=== PATIENT | male | born 1940 | race Hispanic/Latino ===

== ENCOUNTER 2017-12-04 17:51 | Inpatient (IN) | payer MEDICAID, OTHER ==
[~2017-12-04] VITALS: Ht 165.1 cm; Wt 64.7 kg
[2017-12-04 18:32] LABS: BASOPHILS % (AUTO) 0.6 % (0.0-5.0); EOSINOPHILS % (AUTO) 0.8 % (0.0-8.0); HEMATOCRIT 29.4 % (42-54); MEAN CORPUSCULAR HEMOGLOBIN 21.5 pg (27.0-33.0); MEAN CORPUSCULAR VOLUME 69.4 fL (79-99); MONOCYTES % (AUTO) 4.5 % (3.0-13.0); NEUTROPHILS % (AUTO) 88.1 % (40.0-77.0); PLATELET COUNT (AUTO) 202 K/uL (130-400); RED BLOOD CELL COUNT(AUTO) 4.24 MIL/uL (4.50-6.20); RED CELL DISTRIBUTION WIDTH 19.4 % (11.0-15.5); WHITE BLOOD COUNT (AUTO) 9.1 K/uL (4.8-10.8)
[2017-12-04 18:47] LABS: INR 1.27 (0.85-1.15); PARTIAL THROMBOPLASTIN TIME 31.9 SEC (26.3-35.5); PROTHROMBIN TIME 13.3 SEC (9.6-11.6)
[2017-12-04 18:53] LABS: BILIRUBIN,TOTAL 1.1 mg/dL (0.2-1.0); TOTAL PROTEIN, SERUM 7.4 g/dL (6.0-8.3)
[2017-12-04 18:57] LABS: B-TYPE NATRIURETIC PEPTIDE 566 pg/mL (0-100)
[2017-12-04] MEDS ORDERED: INSULIN HUMULIN R 100 UNIT/ML 3ML ONE ×2 (19:02→23:30)
[2017-12-04 19:24] LABS: POTASSIUM 6.1 mmol/L (3.5-5.1)
[2017-12-04 19:38] LABS: RAPID GROUP A STREP NEGATIVE (NEGATIVE)
[2017-12-04] MEDS ORDERED: ONDANSETRON HCL 4 MG/2 ML VIAL ONE (19:43)
[2017-12-04] MEDS ORDERED: MORPHINE SULFATE 4 MG/1ML SYG ONE (19:45)
[2017-12-04 20:05] LABS: APPEARANCE,URINE Clear (CLEAR); BILIRUBIN,URINE Negative (NEGATIVE); COLOR,URINE Yellow (YELLOW); GLUCOSE, URINE (UA) >=1000 mg/dL (NEGATIVE); KETONES,URINE Negative (NEGATIVE); LEUKOCYTE ESTERASE ,URINE Negative (NEGATIVE); NITRATE,URINE Negative (NEGATIVE); OCCULT BLOOD,URINE Negative (NEGATIVE); PROTEIN,URINE Negative (NEGATIVE); UROBILINOGEN,URINE 0.2 mg/dL (0.2-1.0)
[2017-12-04 20:16] LABS: ABG BASE EXCESS -6.7 mmol/L (-2.0-3.0); ABG HCO3 17.2 mmol/L (21.0-28.0); ABG OXYGEN SATURATION 96.1 % (95.0-99.0); ABG PCO2 31 mmHg (35-48)
[2017-12-04 20:21] LABS: BACTERIA,URINE Rare /HPF (None Seen); RBC,URINE 0-1 /HPF (0-1); SQUAMOUS EPITHELIAL CELL,UR Rare /LPF (0-2); WBC,URINE 0-1 /HPF (0-1)
[2017-12-04] MEDS ORDERED: SODIUM POLYSTYRENE SULFONATE 15 GM/60 ML ML ONE (21:53)
[2017-12-04] MEDS ORDERED: SODIUM CHLORIDE 0.9% 1000ML 1,000 ML IV SCH (22:11)
[2017-12-04] MEDS ORDERED: INSULIN REGULAR, HUMAN 3ML 100 UNIT in SODIUM CHLORIDE 0.9% 99 ML IV PRN ×2 (22:15)
[2017-12-04] MEDS ORDERED: DEXTROSE 50%-WATER 50 ML DISP.SYRIN IV PRN (22:15)
[2017-12-04] MEDS ORDERED: ACETAMINOPHEN 325 MG TAB PO PRN ×2 (22:15)
[2017-12-04] MEDS ORDERED: GLUCAGON 1MG KIT 1 MG ML IM PRN (22:15)
[2017-12-04] MEDS ORDERED: ONDANSETRON HCL 4 MG/2 ML VIAL IV PRN (22:15)
[2017-12-04] MEDS ORDERED: SODIUM CHLORIDE 0.9% 100 ML IV ONE (23:29)
[2017-12-05] MEDS ORDERED: HYDRALAZINE HCL 20 MG/ML VIAL IM PRN
[2017-12-05] MEDS ORDERED: LABETALOL 20 MG/4 ML DISP.SYRIN IV PRN
[2017-12-05 00:32] LABS: HEMATOCRIT 27.9 % (42-54); MEAN CORPUSCULAR VOLUME 67.7 fL (79-99); NUCLEATED RED BLOOD CELLS 0.1 % (0.0-0.19); PLATELET COUNT (AUTO) 213 K/uL (130-400); RED BLOOD CELL COUNT(AUTO) 4.12 MIL/uL (4.50-6.20); RED CELL DISTRIBUTION WIDTH 18.6 % (11.0-15.5); WHITE BLOOD COUNT (AUTO) 7.9 K/uL (4.8-10.8)
[2017-12-05 00:55] LABS: INR 1.25 (0.85-1.15); PARTIAL THROMBOPLASTIN TIME 32.7 SEC (26.3-35.5); PROTHROMBIN TIME 13.1 SEC (9.6-11.6)
[2017-12-05 01:01] LABS: CREATININE 1.8 mg/dL (0.5-1.5); POTASSIUM 5.3 mmol/L (3.5-5.1); THYROID STIMULATING HORMONE 2.64 uIU/mL (0.36-3.74)
[2017-12-05 01:05] LABS: HEMOGLOBIN A1C 14.1 % (4.0-6.0)
[2017-12-05] MEDS ORDERED: METRONIDAZOLE 500MG/100ML BAG 100 ML ONE (05:20)
[2017-12-05] MEDS ORDERED: HEPARIN SODIUM 5000UNIT/ML 1ML VIAL ONE (05:20)
[2017-12-05] MEDS: METRONIDAZOLE 250MG/50ML 50 ML IV SCH ×3 (06:00→22:04)
[2017-12-05] MEDS ORDERED: CEFEPIME 1GM+NS 50ML 50 ML IV SCH (06:00)
[2017-12-05] MEDS ORDERED: CEFEPIME HCL 1 GM VIAL ONE ×2 (06:15→14:50)
[2017-12-05] MEDS ORDERED: PANTOPRAZOLE SODIUM 40 MG TABLET.DR PO ONE ×2 (08:31→08:41)
[2017-12-05] MEDS ORDERED: ACETAMINOPHEN 325 MG TAB ONE (08:49)
[2017-12-05] MEDS: PANTOPRAZOLE SODIUM 40 MG TABLET.DR PO SCH (09:00)
[2017-12-05] MEDS ORDERED: GUAIFENESIN-DM 200/20 MG 10 ML ONE (10:02)
[2017-12-05] MEDS: HEPARIN SODIUM 5000UNIT/ML 1ML VIAL SQ SCH ×3 (12:00→23:59)
[2017-12-05] MEDS ORDERED: INSULIN HUMULIN R 100 UNIT/ML 3ML SQ ONE (12:55)
[2017-12-05] MEDS: CEFEPIME HCL 1 GM VIAL IVP SCH ×2 (14:00→22:04)
[2017-12-05] MEDS ORDERED: RENAL DOSE IV PRN (14:45)
[2017-12-05] MEDS ORDERED: PHARMACY COMMUNICATION MISC SCH (15:00)
[2017-12-05 16:52] VITALS: BP 139/73
[2017-12-05] MEDS: LEVOFLOXACIN 500 MG/D5W 100 ML 100 ML IV SCH (18:24)
[2017-12-05] MEDS: GUAIFENESIN-DM 200/20 MG 10 ML PO PRN (18:24)
[2017-12-05] MEDS: IPRATROPIUM/ALBUTEROL SULFATE 3 ML SOLUTION IH PRN ×2 (19:05→23:38)
[2017-12-05 19:33] VITALS: BP 159/84
[2017-12-05] MEDS ORDERED: MORPHINE SULFATE 2 MG/ML 1ML SYG IVP PRN (20:30)
[2017-12-05] MEDS ORDERED: ACETAMINOPHEN-CODEINE 300/30MG TAB PO PRN (20:30)
[2017-12-05] MEDS ORDERED: SODIUM CHLORIDE 0.9% 1000ML 1,000 ML IV SCH (20:45)
[2017-12-05] MEDS ORDERED: INSULIN GLARGINE 100 UNITS/ML 10 ML VIAL SQ SCH (20:51)
[2017-12-05] MEDS ORDERED: MORPHINE SULFATE 8 MG/ML VIAL ONE (21:09)
[2017-12-05] MEDS: MIRTAZAPINE 15 MG TABLET PO SCH (21:12)
[2017-12-05] MEDS: INSULIN HUMULIN R 100 UNIT/ML 3ML SQ SCH (21:13)
[2017-12-05 23:29] VITALS: BP 114/58
[2017-12-05] MEDS ORDERED: PNEUMOCOCCAL VACCINE POLYVALENT 0.5 ML/VIAL [PPV] IM SCH (23:45)
[2017-12-06 04:00] VITALS: BP 131/75
[2017-12-06 04:44] LABS: BASOPHILS % (AUTO) 0.1 % (0.0-5.0); EOSINOPHILS % (AUTO) 0.7 % (0.0-8.0); HEMATOCRIT 24.2 % (42-54); LYMPHOCYTES % (AUTO) 6.4 % (21.0-51.0); MEAN CORPUSCULAR HEMOGLOBIN 21.7 pg (27.0-33.0); MEAN CORPUSCULAR HGB CONC 33.1 g/dL (32.0-36.0); MEAN CORPUSCULAR VOLUME 65.6 fL (79-99); MONOCYTES % (AUTO) 6.4 % (3.0-13.0); NEUTROPHILS % (AUTO) 86.4 % (40.0-77.0); PLATELET COUNT (AUTO) 236 K/uL (130-400); RED BLOOD CELL COUNT(AUTO) 3.69 MIL/uL (4.50-6.20); RED CELL DISTRIBUTION WIDTH 18.7 % (11.0-15.5); WHITE BLOOD COUNT (AUTO) 10.8 K/uL (4.8-10.8)
[2017-12-06 04:55] LABS: CREATININE 1.5 mg/dL (0.5-1.5); MAGNESIUM 1.7 mg/dL (1.80-2.40); POTASSIUM 4.7 mmol/L (3.5-5.1)
[2017-12-06] MEDS: CEFEPIME HCL 1 GM VIAL IVP SCH ×3 (05:56→23:28)
[2017-12-06] MEDS: METRONIDAZOLE 250MG/50ML 50 ML IV SCH ×3 (05:56→23:29)
[2017-12-06] MEDS: IPRATROPIUM/ALBUTEROL SULFATE 3 ML SOLUTION IH PRN ×4 (06:26→23:36)
[2017-12-06] MEDS: INSULIN GLARGINE 100 UNITS/ML 10 ML VIAL SQ SCH ×2 (06:35→23:31)
[2017-12-06] MEDS: INSULIN HUMULIN R 100 UNIT/ML 3ML SQ SCH ×4 (06:36→23:30)
[2017-12-06] MEDS: GUAIFENESIN-DM 200/20 MG 10 ML PO PRN (06:36)
[2017-12-06 08:00] VITALS: BP 122/70
[2017-12-06] MEDS ORDERED: VANCOMYCIN PROTOCOL PER PHARMACY IV SCH (09:45)
[2017-12-06 11:40] VITALS: BP 141/77
[2017-12-06] MEDS: HEPARIN SODIUM 5000UNIT/ML 1ML VIAL SQ SCH (12:00)
[2017-12-06] MEDS ORDERED: IOPAMIDOL-370 75 ML VIAL IV ONE (14:25)
[2017-12-06] MEDS: PANTOPRAZOLE SODIUM 40 MG TABLET.DR PO SCH (15:24)
[2017-12-06] MEDS: VANCOMYCIN 1GM+NS 250ML 250 ML IV SCH (15:25)
[2017-12-06 16:00] VITALS: BP 133/73
[2017-12-06] MEDS ORDERED: COMPOUND IV MISC 1 EACH IVSOLN MISC PRN (19:00)
[2017-12-06 19:51] VITALS: BP 160/72
[2017-12-06] MEDS: MIRTAZAPINE 15 MG TABLET PO SCH (23:28)
[2017-12-07] VITALS (7 sets, daily range): BP systolic 128–137; BP diastolic 61–75
[2017-12-07] MEDS ORDERED: MORPHINE SULFATE 4 MG/1ML SYG ONE (01:24)
[2017-12-07 06:09] LABS: % IRON SATURATION 12.2 % (30-44)
[2017-12-07] MEDS: IPRATROPIUM/ALBUTEROL SULFATE 3 ML SOLUTION IH PRN ×4 (06:32→19:12)
[2017-12-07] MEDS ORDERED: SODIUM CHLORIDE 3% FOR INHALATION 4 ML/AMP VIAL.NEB IH ONE ×2 (06:33→10:53)
[2017-12-07] MEDS: CEFEPIME HCL 1 GM VIAL IVP SCH ×3 (07:11→22:00)
[2017-12-07] MEDS: INSULIN GLARGINE 100 UNITS/ML 10 ML VIAL SQ SCH ×2 (07:12→22:06)
[2017-12-07] MEDS: INSULIN HUMULIN R 100 UNIT/ML 3ML SQ SCH ×4 (07:16→22:09)
[2017-12-07] MEDS: METRONIDAZOLE 250MG/50ML 50 ML IV SCH ×3 (10:02→23:37)
[2017-12-07] MEDS: PANTOPRAZOLE SODIUM 40 MG TABLET.DR PO SCH (10:02)
[2017-12-07] MEDS: VANCOMYCIN 1GM+NS 250ML 250 ML IV SCH (10:03)
[2017-12-07] MEDS ORDERED: EPOETIN ALFA 10,000 UNIT/ML VIAL SQ SCH (11:00)
[2017-12-07] MEDS: LEVOFLOXACIN 500 MG/D5W 100 ML 100 ML IV SCH (21:56)
[2017-12-07] MEDS: MIRTAZAPINE 15 MG TABLET PO SCH (21:59)
[2017-12-08] VITALS (13 sets, daily range): BP systolic 120–155; BP diastolic 59–86
[2017-12-08] MEDS: METRONIDAZOLE 250MG/50ML 50 ML IV SCH ×2 (05:56→14:23)
[2017-12-08] MEDS: CEFEPIME HCL 1 GM VIAL IVP SCH ×2 (05:56→14:22)
[2017-12-08 06:16] LABS: HEMATOCRIT 23.8 % (42-54); MEAN CORPUSCULAR HEMOGLOBIN 22.5 pg (27.0-33.0); MEAN CORPUSCULAR HGB CONC 33.9 g/dL (32.0-36.0); MEAN CORPUSCULAR VOLUME 66.3 fL (79-99); PLATELET COUNT (AUTO) 190 K/uL (130-400); RED BLOOD CELL COUNT(AUTO) 3.59 MIL/uL (4.50-6.20); RED CELL DISTRIBUTION WIDTH 18.8 % (11.0-15.5); WHITE BLOOD COUNT (AUTO) 9.3 K/uL (4.8-10.8)
[2017-12-08 06:23] LABS: CREATININE 1.1 mg/dL (0.5-1.5); POTASSIUM 4.3 mmol/L (3.5-5.1)
[2017-12-08] MEDS: INSULIN HUMULIN R 100 UNIT/ML 3ML SQ SCH ×4 (06:30→21:48)
[2017-12-08] MEDS: INSULIN GLARGINE 100 UNITS/ML 10 ML VIAL SQ SCH ×2 (06:32→21:47)
[2017-12-08 07:39] LABS: LYMPHOCYTES % (MANUAL) 5 % (22-44); MAN.DIFF COMMENT-IMPRESSION MANUAL DIFFERENTIAL; MONOCYTES % (MANUAL) 2 % (2-9); PLATELET MORPHOLOGY COMMENT ADEQUATE; SEGMENTED NEUTROPHILS % 93 % (40-70)
[2017-12-08] MEDS: PANTOPRAZOLE SODIUM 40 MG TABLET.DR PO SCH (11:02)
[2017-12-08] MEDS: VANCOMYCIN 1GM+NS 250ML 250 ML IV SCH (11:04)
[2017-12-08 12:53] LABS: GLUCOSE,BODY FLUID 215 mg/dL (1-40)
[2017-12-08 13:15] LABS: APPEARANCE BODY FLUID CLEAR (CLEAR); COLOR,BODY FLUID YELLOW (LT YELLOW); SPECIMENTYPE,BODY FLUID THORACENTESIS; TOTAL VOLUME,BODY FLUID 400 mL
[2017-12-08 13:16] LABS: BODY FLUID RBC 444 /cu. mm.; BODY FLUID WBC 242 /cu. mm.
[2017-12-08 13:22] LABS: BF LYMPHOCYTE 20 %; BF MESOTHELIAL 8 %; BF MONOCYTE 4 %
[2017-12-08 13:25] LABS: PH, BODY FLUID 7
[2017-12-08] MEDS: IRON SUCROSE COMPLEX 100 MG in SODIUM CHLORIDE 0.9% 50 ML IV SCH (14:23)
[2017-12-08] MEDS ORDERED: MORPHINE SULFATE 4 MG/1ML SYG IVP PRN (16:00)
[2017-12-08] MEDS: WATER FOR INJECTION,STERILE 20 ML VIAL IJ SCH (16:30)
[2017-12-08] MEDS ORDERED: CEFTRIAXONE 2GM+NS 100ML 100 ML IV SCH (16:30)
[2017-12-08] MEDS: CEFTRIAXONE SODIUM 2 GM VIAL IVP SCH (17:57)
[2017-12-08] MEDS: MIRTAZAPINE 15 MG TABLET PO SCH (21:51)
[2017-12-08] MEDS: LACTULOSE 20 GM/30 ML UDCUP PO PRN (22:05)
[2017-12-09] VITALS: BP 143/79
[2017-12-09 04:00] VITALS: BP 139/86
[2017-12-09] MEDS: INSULIN HUMULIN R 100 UNIT/ML 3ML SQ SCH ×4 (06:40→21:55)
[2017-12-09] MEDS: INSULIN GLARGINE 100 UNITS/ML 10 ML VIAL SQ SCH ×2 (06:45→21:54)
[2017-12-09 08:00] VITALS: BP 147/81
[2017-12-09] MEDS: IRON SUCROSE COMPLEX 100 MG in SODIUM CHLORIDE 0.9% 50 ML IV SCH (09:21)
[2017-12-09] MEDS: PANTOPRAZOLE SODIUM 40 MG TABLET.DR PO SCH (09:21)
[2017-12-09] MEDS: LACTULOSE 20 GM/30 ML UDCUP PO PRN (09:21)
[2017-12-09 11:00] VITALS: BP 130/72
[2017-12-09 16:00] VITALS: BP 142/71
[2017-12-09] MEDS: WATER FOR INJECTION,STERILE 20 ML VIAL IJ SCH (16:30)
[2017-12-09] MEDS: CEFTRIAXONE SODIUM 2 GM VIAL IVP SCH (17:40)
[2017-12-09 20:00] VITALS: BP 136/71
[2017-12-09] MEDS: MIRTAZAPINE 15 MG TABLET PO SCH (21:57)
[2017-12-10] VITALS: BP 139/88
[2017-12-10 04:00] VITALS: BP 152/88
[2017-12-10 04:17] LABS: BASOPHILS % (AUTO) 1.2 % (0.0-5.0); EOSINOPHILS % (AUTO) 1.6 % (0.0-8.0); HEMATOCRIT 26.6 % (42-54); LYMPHOCYTES % (AUTO) 10.9 % (21.0-51.0); MEAN CORPUSCULAR HEMOGLOBIN 21.3 pg (27.0-33.0); MEAN CORPUSCULAR HGB CONC 31.7 g/dL (32.0-36.0); MEAN CORPUSCULAR VOLUME 67.1 fL (79-99); MONOCYTES % (AUTO) 7.2 % (3.0-13.0); NEUTROPHILS % (AUTO) 79.1 % (40.0-77.0); PLATELET COUNT (AUTO) 253 K/uL (130-400); RED BLOOD CELL COUNT(AUTO) 3.96 MIL/uL (4.50-6.20); RED CELL DISTRIBUTION WIDTH 19.4 % (11.0-15.5); WHITE BLOOD COUNT (AUTO) 11.7 K/uL (4.8-10.8)
[2017-12-10 04:47] LABS: ALBUMIN 1.7 g/dL (3.5-5.0); BILIRUBIN,TOTAL 0.6 mg/dL (0.2-1.0); TOTAL PROTEIN, SERUM 7.3 g/dL (6.0-8.3)
[2017-12-10] MEDS: INSULIN HUMULIN R 100 UNIT/ML 3ML SQ SCH ×2 (06:51→11:30)
[2017-12-10] MEDS: INSULIN GLARGINE 100 UNITS/ML 10 ML VIAL SQ SCH (06:58)
[2017-12-10 07:00] VITALS: BP 156/79
[2017-12-10 11:00] VITALS: BP 134/77
[2017-12-10] MEDS: PANTOPRAZOLE SODIUM 40 MG TABLET.DR PO SCH (11:06)
[2017-12-10] MEDS: IRON SUCROSE COMPLEX 100 MG in SODIUM CHLORIDE 0.9% 50 ML IV SCH (11:06)
[2017-12-10] MEDS ORDERED: INSLAN SQ (12:01)
[2017-12-10] MEDS ORDERED: CEFD300C3 PO (12:01)
[2017-12-10] MEDS ORDERED: PANT40TA PO (12:01)
[2017-12-10] MEDS ORDERED: FERR325T29 PO (12:01)
[2017-12-10] MEDS ORDERED: ACET-2247 PO (12:01)
[2017-12-10] MEDS: GUAIFENESIN-DM 200/20 MG 10 ML PO PRN (12:50)
[2017-12-10] MEDS ORDERED: FLU VACC QS2017-18 36MOS UP/PF 60 MCG/0.5 ML ML IM ONE (15:15)
== END 2017-12-10 18:35 | disposition home or self-care (01) | DRG 871 ==
LOC: EDH 17:51 → EDHIP 17:52 → 3DH 12-05 16:32
PROVIDERS: ADMIT Family Medicine; ATTEND Family Medicine
PROC: 0W993ZZ Drainage of Right Pleural Cavity, Percutaneous Approach (ICD-10-PCS; principal; 2017-12-08)
PROC: 3E0234Z Introduction of Serum, Toxoid and Vaccine into Muscle, Percutaneous Approach (ICD-10-PCS; 2017-12-08)
PROC: 3E0234Z Introduction of Serum, Toxoid and Vaccine into Muscle, Percutaneous Approach (ICD-10-PCS; 2017-12-08)
DX: A41.9 Sepsis, unspecified organism (principal); E43 Unspecified severe protein-calorie malnutrition; N17.0 Acute kidney failure with tubular necrosis; J18.9 Pneumonia, unspecified organism; J90 Pleural effusion, not elsewhere classified; E11.22 Type 2 diabetes mellitus with diabetic chronic kidney disease; E11.65 Type 2 diabetes mellitus with hyperglycemia; E86.0 Dehydration; J44.0 Chronic obstructive pulmonary disease with (acute) lower respiratory infection; E87.1 Hypo-osmolality and hyponatremia; W19.XXXA Unspecified fall, initial encounter; N18.9 Chronic kidney disease, unspecified; I12.9 Hypertensive chronic kidney disease with stage 1 through stage 4 chronic kidney disease, or unspecified chronic kidney disease; M19.90 Unspecified osteoarthritis, unspecified site; B95.4 Other streptococcus as the cause of diseases classified elsewhere; B96.89 Other specified bacterial agents as the cause of diseases classified elsewhere; I49.3 Ventricular premature depolarization; Z96.653 Presence of artificial knee joint, bilateral; Z87.891 Personal history of nicotine dependence; Y93.89 Activity, other specified; Y92.89 Other specified places as the place of occurrence of the external cause; Y99.8 Other external cause status; Z23 Encounter for immunization; Z68.23 Body mass index [BMI] 23.0-23.9, adult; Z83.3 Family history of diabetes mellitus
CPT/HCPCS: 32555; 36415; 36600; 71045; 71250; 72100; 72170; 73562; 76604; 80048; 80053; 80061; 80202; 81001; 82010; 82803; 82945; 82948; 83036; 83540; 83550; 83605; 83615; 83690; 83735; 83880; 83930; 83986; 84134; 84157; 84443; 84484; 85025; 85027; 85610; 85730; 87040; 87071; 87088; 87186; 87205; 87633; 87804; 87807; 87880; 88108; 88305; 89051; 90732; 93005; 93306; 94640; 94664; 97039; 99291; A4218; A6250; G0009; J0692; J0696; J0885; J1644; J1756; J1815; J1956; J2270; J2405; J3370; J3490; J7030; Q9967

== ENCOUNTER 2017-12-18 22:59 | Inpatient (IN) | payer OTHER ==
[~2017-12-18] VITALS: Ht 165.1 cm; Wt 59.6 kg
[~2017-12-18 22:59] MED LIST: ACET-2247 PO; CEFD300C3 PO; FERR325T29 PO; INSLAN SQ; PANT40TA PO
[2017-12-18] MEDS ORDERED: IPRATROPIUM/ALBUTEROL SULFATE 3 ML SOLUTION IH ONE (23:38)
[2017-12-19] MEDS ORDERED: PREDNISONE 20 MG TABLET ONE (00:02)
[2017-12-19] MEDS ORDERED: ASPIRIN 81MG TAB.CHEW ONE (00:02)
[2017-12-19 00:20] LABS: CARBON DIOXIDE 26 mmol/L (21-32); CHLORIDE 107 mmol/L (101-111); CREATININE 1.1 mg/dL (0.5-1.5); GLOMERULAR FILTR. RATE CALC 69 mL/min (>60); GLUCOSE,RANDOM 278 mg/dL (70-105); POTASSIUM 4.7 mmol/L (3.5-5.1); SODIUM SERUM 139 mmol/L (136-145); UREA NITROGEN, BLOOD 16 mg/dL (7-18)
[2017-12-19 00:23] LABS: INR 1.16 (0.85-1.15); PARTIAL THROMBOPLASTIN TIME 26.4 SEC (26.3-35.5); PROTHROMBIN TIME 12.1 SEC (9.6-11.6)
[2017-12-19 00:38] LABS: ALANINE AMINOTRANSFERASE 19 U/L (12-78); ALBUMIN 2.1 g/dL (3.5-5.0); ASPARTATE AMINOTRANSFERASE 18 U/L (10-37); BILIRUBIN,TOTAL 0.6 mg/dL (0.2-1.0); CREATINE KINASE, TOTAL 40 U/L (21-232); TOTAL PROTEIN, SERUM 7.7 g/dL (6.0-8.3)
[2017-12-19 00:45] LABS: BASOPHILS % (AUTO) 1.8 % (0.0-5.0); EOSINOPHILS % (AUTO) 1.5 % (0.0-8.0); HEMATOCRIT 30.6 % (42-54); LYMPHOCYTES % (AUTO) 7.4 % (21.0-51.0); MEAN CORPUSCULAR HEMOGLOBIN 22.2 pg (27.0-33.0); MEAN CORPUSCULAR HGB CONC 30.8 g/dL (32.0-36.0); MONOCYTES % (AUTO) 4.7 % (3.0-13.0); NEUTROPHILS % (AUTO) 84.6 % (40.0-77.0); NUCLEATED RED BLOOD CELLS 0.1 % (0.0-0.19); PLATELET COUNT (AUTO) 364 K/uL (130-400); RED BLOOD CELL COUNT(AUTO) 4.25 MIL/uL (4.50-6.20); RED CELL DISTRIBUTION WIDTH 29.1 % (11.0-15.5); WHITE BLOOD COUNT (AUTO) 12.2 K/uL (4.8-10.8)
[2017-12-19 01:12] LABS: B-TYPE NATRIURETIC PEPTIDE 83 pg/mL (0-100)
[2017-12-19 01:18] LABS: CREATINE KINASE MB < 0.5 ng/mL (0.5-3.6)
[2017-12-19] MEDS ORDERED: LEVOFLOXACIN 750 MG/D5W 150 ML 150 ML ONE (02:07)
[2017-12-19 02:38] LABS: APPEARANCE,URINE Clear (CLEAR); BILIRUBIN,URINE Negative (NEGATIVE); COLOR,URINE Dark Yellow (YELLOW); GLUCOSE, URINE (UA) >=1000 mg/dL (NEGATIVE); KETONES,URINE Trace mg/dL (NEGATIVE); LEUKOCYTE ESTERASE ,URINE Negative (NEGATIVE); NITRATE,URINE Negative (NEGATIVE); OCCULT BLOOD,URINE Negative (NEGATIVE); PH,URINE 5.5 (5.0-8.0); PROTEIN,URINE POS 1+ (NEGATIVE)
[2017-12-19 02:53] LABS: AMORPHOUS SEDIMENT,UR Few /LPF (None Seen); BACTERIA,URINE None Seen /HPF (None Seen); COARSE GRANULAR CASTS,URINE 0-2 /LPF (None Seen); MUCUS,URINE Rare LPF (None Seen); RBC,URINE None Seen /HPF (0-1); SQUAMOUS EPITHELIAL CELL,UR Few /LPF (0-2); WBC,URINE None Seen /HPF (0-1); YEAST,URINE BUDDING None Seen /HPF (None Seen)
[2017-12-19 04:00] VITALS: BP 135/76
[2017-12-19] MEDS ORDERED: LEVOFLOXACIN 500 MG/D5W 100 ML 100 ML IV SCH (04:15)
[2017-12-19] MEDS ORDERED: GUAIFENESIN-DM 200/20 MG 10 ML PO PRN (04:15)
[2017-12-19] MEDS ORDERED: ACETAMINOPHEN 325 MG TAB PO PRN ×2 (04:15)
[2017-12-19] MEDS ORDERED: GLUCAGON 1MG KIT 1 MG ML IM PRN (05:30)
[2017-12-19] MEDS: INSULIN HUMULIN R 100 UNIT/ML 3ML SQ SCH ×4 (06:43→22:58)
[2017-12-19] MEDS: IPRATROPIUM/ALBUTEROL SULFATE 3 ML SOLUTION IH SCH ×5 (06:52→22:02)
[2017-12-19 07:00] VITALS: BP 124/64
[2017-12-19] MEDS: ENOXAPARIN SODIUM 40 MG/0.4 ML SYRINGE SQ SCH (09:00)
[2017-12-19] MEDS: BENZONATATE 100 MG CAPSULE PO SCH ×3 (09:12→22:54)
[2017-12-19] MEDS: PANTOPRAZOLE SODIUM 40 MG TABLET.DR PO SCH (09:12)
[2017-12-19 12:00] VITALS: BP 127/50
[2017-12-19 16:00] VITALS: BP 131/65
[2017-12-19 20:00] VITALS: BP 108/50
[2017-12-19 20:20] LABS: APPEARANCE BODY FLUID SLIGHTLY CLOUDY (CLEAR); BODY FLUID WBC 172 /cu. mm.; COLOR,BODY FLUID LT YELLOW (LT YELLOW); SPECIMENTYPE,BODY FLUID PLEURAL; TOTAL VOLUME,BODY FLUID 1700 mL
[2017-12-19 20:21] LABS: BODY FLUID RBC 1644 /cu. mm.
[2017-12-19 20:26] LABS: BF BASOPHIL 1 %; BF LYMPHOCYTE 31 %; BF MESOTHELIAL 2 %; BF OTHER CELLS 11
[2017-12-19 23:39] VITALS: BP 115/54
[2017-12-20] VITALS (13 sets, daily range): BP systolic 98–137; BP diastolic 58–81
[2017-12-20] MEDS: IPRATROPIUM/ALBUTEROL SULFATE 3 ML SOLUTION IH SCH ×6 (02:53→22:03)
[2017-12-20 04:31] LABS: BASOPHILS % (AUTO) 0.8 % (0.0-5.0); EOSINOPHILS % (AUTO) 2.1 % (0.0-8.0); HEMATOCRIT 26.3 % (42-54); LYMPHOCYTES % (AUTO) 9.3 % (21.0-51.0); MEAN CORPUSCULAR HEMOGLOBIN 22.5 pg (27.0-33.0); MEAN CORPUSCULAR HGB CONC 31.5 g/dL (32.0-36.0); MEAN CORPUSCULAR VOLUME 71.3 fL (79-99); MONOCYTES % (AUTO) 4.4 % (3.0-13.0); NEUTROPHILS % (AUTO) 83.4 % (40.0-77.0); PLATELET COUNT (AUTO) 277 K/uL (130-400); RED BLOOD CELL COUNT(AUTO) 3.69 MIL/uL (4.50-6.20); RED CELL DISTRIBUTION WIDTH 29.8 % (11.0-15.5); WHITE BLOOD COUNT (AUTO) 8.4 K/uL (4.8-10.8)
[2017-12-20 04:45] LABS: MAGNESIUM 1.4 mg/dL (1.80-2.40); PHOSPHORUS 2.9 mg/dL (2.5-4.9); POTASSIUM 4.4 mmol/L (3.5-5.1)
[2017-12-20] MEDS: LEVOFLOXACIN 500 MG/D5W 100 ML 100 ML IV SCH (04:59)
[2017-12-20] MEDS: INSULIN HUMULIN R 100 UNIT/ML 3ML SQ SCH ×4 (06:39→22:50)
[2017-12-20] MEDS: BENZONATATE 100 MG CAPSULE PO SCH ×3 (08:41→22:45)
[2017-12-20] MEDS: PANTOPRAZOLE SODIUM 40 MG TABLET.DR PO SCH (08:41)
[2017-12-20] MEDS: ENOXAPARIN SODIUM 40 MG/0.4 ML SYRINGE SQ SCH (09:00)
[2017-12-20] MEDS: TRAMADOL HCL 50 MG TABLET PO PRN (16:14)
[2017-12-20] MEDS ORDERED: MORPHINE SULFATE 2 MG/ML 1ML SYG ONE (18:20)
[2017-12-20] MEDS ORDERED: MAGNESIUM 2GM PREMIX 50ML 50 ML IV ONE (18:44)
[2017-12-21] MEDS: IPRATROPIUM/ALBUTEROL SULFATE 3 ML SOLUTION IH SCH ×6 (01:53→22:01)
[2017-12-21 03:40] VITALS: BP 146/73
[2017-12-21] MEDS: LEVOFLOXACIN 500 MG/D5W 100 ML 100 ML IV SCH (04:54)
[2017-12-21] MEDS: INSULIN HUMULIN R 100 UNIT/ML 3ML SQ SCH ×4 (06:06→20:31)
[2017-12-21] MEDS: MORPHINE SULFATE 2 MG/ML 1ML SYG IVP PRN ×2 (06:21→09:22)
[2017-12-21 07:00] VITALS: BP 110/57
[2017-12-21 07:10] LABS: BASOPHILS % (AUTO) 0.6 % (0.0-5.0); EOSINOPHILS % (AUTO) 1.2 % (0.0-8.0); MEAN CORPUSCULAR HEMOGLOBIN 23.6 pg (27.0-33.0); MEAN CORPUSCULAR HGB CONC 32.6 g/dL (32.0-36.0); MEAN CORPUSCULAR VOLUME 72.3 fL (79-99); MONOCYTES % (AUTO) 5.8 % (3.0-13.0); NEUTROPHILS % (AUTO) 88.4 % (40.0-77.0); PLATELET COUNT (AUTO) 214 K/uL (130-400); RED BLOOD CELL COUNT(AUTO) 3.88 MIL/uL (4.50-6.20); RED CELL DISTRIBUTION WIDTH 29.2 % (11.0-15.5); WHITE BLOOD COUNT (AUTO) 10.7 K/uL (4.8-10.8)
[2017-12-21 07:22] LABS: CREATININE 1.1 mg/dL (0.5-1.5); MAGNESIUM 1.6 mg/dL (1.80-2.40); POTASSIUM 4.3 mmol/L (3.5-5.1)
[2017-12-21] MEDS ORDERED: DIATR MEGLU/DIATRIZOATE SODIUM 30 ML BOTTLE PO ONE (07:24)
[2017-12-21] MEDS ORDERED: MAGNESIUM 2GM PREMIX 50ML 50 ML IV ONE (09:20)
[2017-12-21] MEDS ORDERED: IOPAMIDOL-370 75 ML VIAL IV ONE (09:43)
[2017-12-21] MEDS ORDERED: LACTULOSE 20 GM/30 ML UDCUP ONE (11:23)
[2017-12-21] MEDS: PANTOPRAZOLE SODIUM 40 MG TABLET.DR PO SCH (11:25)
[2017-12-21] MEDS: BENZONATATE 100 MG CAPSULE PO SCH ×3 (11:26→20:32)
[2017-12-21] MEDS: TRAMADOL HCL 50 MG TABLET PO PRN (11:27)
[2017-12-21] MEDS: LACTULOSE 20 GM/30 ML UDCUP PO SCH ×4 (11:30→23:39)
[2017-12-21 12:32] VITALS: BP 115/62
[2017-12-21] MEDS ORDERED: GLIBENCLAMIDA PO (14:23)
[2017-12-21] MEDS ORDERED: [UNRECOGNIZED DRUG - OTHER] PO (14:23)
[2017-12-21] MEDS ORDERED: METFORMINA PO (14:23)
[2017-12-21] MEDS ORDERED: SPIRONOLACTONE PO (14:23)
[2017-12-21] MEDS ORDERED: SUCRALFATE PO (14:23)
[2017-12-21] MEDS ORDERED: OMEP20TA25 PO (14:23)
[2017-12-21] MEDS ORDERED: ACARBOSE PO (14:23)
[2017-12-21] MEDS ORDERED: PROP40TA7 PO (14:23)
[2017-12-21 16:00] VITALS: BP 112/58
[2017-12-21 19:35] VITALS: BP 115/65
[2017-12-21] MEDS: ENOXAPARIN SODIUM 40 MG/0.4 ML SYRINGE SQ SCH (20:40)
[2017-12-21] MEDS: ENOXAPARIN SODIUM 60 MG/0.6 ML SQ SCH (21:00)
[2017-12-21 23:36] VITALS: BP 118/64
[2017-12-22] MEDS: TRAMADOL HCL 50 MG TABLET PO PRN ×2 (01:05→08:41)
[2017-12-22] MEDS: IPRATROPIUM/ALBUTEROL SULFATE 3 ML SOLUTION IH SCH ×6 (02:05→22:05)
[2017-12-22] MEDS: LACTULOSE 20 GM/30 ML UDCUP PO SCH ×7 (02:30→20:30)
[2017-12-22 03:56] VITALS: BP 125/54
[2017-12-22] MEDS: LEVOFLOXACIN 500 MG/D5W 100 ML 100 ML IV SCH (04:15)
[2017-12-22] MEDS: INSULIN HUMULIN R 100 UNIT/ML 3ML SQ SCH ×4 (06:47→21:16)
[2017-12-22 07:00] VITALS: BP 103/61
[2017-12-22] MEDS: BENZONATATE 100 MG CAPSULE PO SCH ×3 (08:41→21:11)
[2017-12-22] MEDS: PANTOPRAZOLE SODIUM 40 MG TABLET.DR PO SCH (08:41)
[2017-12-22] MEDS: ENOXAPARIN SODIUM 60 MG/0.6 ML SQ SCH ×2 (08:42→21:11)
[2017-12-22] MEDS: MAGNESIUM SULFATE 1 GM in SODIUM CHLORIDE 0.9% 50 ML IV SCH (09:04)
[2017-12-22 11:00] VITALS: BP 122/64
[2017-12-22] MEDS: ALBUMIN (HUMAN) 25% 50 ML IV SCH ×2 (12:23→18:28)
[2017-12-22 17:59] VITALS: BP 129/69
[2017-12-22 19:15] VITALS: BP 117/57
[2017-12-22] MEDS: INSULIN GLARGINE 100 UNITS/ML 10 ML VIAL SQ SCH (21:15)
[2017-12-22 23:48] VITALS: BP 120/67
[2017-12-23] MEDS: ALBUMIN (HUMAN) 25% 50 ML IV SCH ×2 (00:16→04:45)
[2017-12-23] MEDS: IPRATROPIUM/ALBUTEROL SULFATE 3 ML SOLUTION IH SCH ×6 (02:07→22:53)
[2017-12-23] MEDS: LEVOFLOXACIN 500 MG/D5W 100 ML 100 ML IV SCH (03:39)
[2017-12-23] MEDS: TRAMADOL HCL 50 MG TABLET PO PRN (03:43)
[2017-12-23 04:02] VITALS: BP 116/68
[2017-12-23 05:14] LABS: HEMATOCRIT 26.5 % (42-54); MEAN CORPUSCULAR HEMOGLOBIN 23.6 pg (27.0-33.0); MEAN CORPUSCULAR HGB CONC 32.4 g/dL (32.0-36.0); MEAN CORPUSCULAR VOLUME 72.9 fL (79-99); NUCLEATED RED BLOOD CELLS 0.1 % (0.0-0.19); PLATELET COUNT (AUTO) 160 K/uL (130-400); RED BLOOD CELL COUNT(AUTO) 3.63 MIL/uL (4.50-6.20); RED CELL DISTRIBUTION WIDTH 29.4 % (11.0-15.5); WHITE BLOOD COUNT (AUTO) 6.9 K/uL (4.8-10.8)
[2017-12-23 05:34] LABS: ALBUMIN 2.3 g/dL (3.5-5.0); BILIRUBIN,TOTAL 0.5 mg/dL (0.2-1.0); CREATININE 0.9 mg/dL (0.5-1.5); POTASSIUM 4.4 mmol/L (3.5-5.1)
[2017-12-23] MEDS: INSULIN HUMULIN R 100 UNIT/ML 3ML SQ SCH ×4 (06:15→21:12)
[2017-12-23] MEDS: INSULIN GLARGINE 100 UNITS/ML 10 ML VIAL SQ SCH ×2 (06:28→21:11)
[2017-12-23] MEDS: BENZONATATE 100 MG CAPSULE PO SCH ×3 (09:00→21:13)
[2017-12-23] MEDS: ENOXAPARIN SODIUM 60 MG/0.6 ML SQ SCH ×2 (09:00→21:13)
[2017-12-23] MEDS: PANTOPRAZOLE SODIUM 40 MG TABLET.DR PO SCH (09:00)
[2017-12-23 09:57] VITALS: BP 139/73
[2017-12-23 11:50] LABS: INR 1.14 (0.85-1.15); PROTHROMBIN TIME 11.9 SEC (9.6-11.6)
[2017-12-23 12:12] LABS: PARTIAL THROMBOPLASTIN TIME 30.6 SEC (26.3-35.5)
[2017-12-23 13:25] VITALS: BP 109/70
[2017-12-23 18:30] VITALS: BP 113/51
[2017-12-23 19:00] VITALS: BP 110/57
[2017-12-23] MEDS ORDERED: LACTULOSE 20 GM/30 ML UDCUP PO PRN (20:30)
[2017-12-24] VITALS (14 sets, daily range): BP systolic 95–119; BP diastolic 53–72
[2017-12-24] MEDS: IPRATROPIUM/ALBUTEROL SULFATE 3 ML SOLUTION IH SCH ×6 (01:54→22:02)
[2017-12-24] MEDS: LEVOFLOXACIN 500 MG/D5W 100 ML 100 ML IV SCH (04:39)
[2017-12-24] MEDS: TRAMADOL HCL 50 MG TABLET PO PRN ×2 (04:40→18:32)
[2017-12-24 05:06] LABS: BASOPHILS % (AUTO) 1.3 % (0.0-5.0); EOSINOPHILS % (AUTO) 3.6 % (0.0-8.0); HEMATOCRIT 25.3 % (42-54); LYMPHOCYTES % (AUTO) 10.6 % (21.0-51.0); MEAN CORPUSCULAR HEMOGLOBIN 22.8 pg (27.0-33.0); MEAN CORPUSCULAR HGB CONC 31.6 g/dL (32.0-36.0); MEAN CORPUSCULAR VOLUME 72.1 fL (79-99); MONOCYTES % (AUTO) 6.4 % (3.0-13.0); NEUTROPHILS % (AUTO) 78.1 % (40.0-77.0); PLATELET COUNT (AUTO) 163 K/uL (130-400); RED BLOOD CELL COUNT(AUTO) 3.51 MIL/uL (4.50-6.20); RED CELL DISTRIBUTION WIDTH 28.6 % (11.0-15.5); WHITE BLOOD COUNT (AUTO) 5.8 K/uL (4.8-10.8)
[2017-12-24 05:36] LABS: CREATININE 0.9 mg/dL (0.5-1.5); MAGNESIUM 1.5 mg/dL (1.80-2.40); PHOSPHORUS 2.7 mg/dL (2.5-4.9); POTASSIUM 4.4 mmol/L (3.5-5.1)
[2017-12-24] MEDS: INSULIN HUMULIN R 100 UNIT/ML 3ML SQ SCH ×3 (06:25→21:03)
[2017-12-24] MEDS: INSULIN GLARGINE 100 UNITS/ML 10 ML VIAL SQ SCH ×2 (06:26→20:58)
[2017-12-24] MEDS ORDERED: ZINC OXIDE OINT 60GM TUBE TP PRN (06:30)
[2017-12-24] MEDS: PANTOPRAZOLE SODIUM 40 MG TABLET.DR PO SCH (09:43)
[2017-12-24] MEDS: BENZONATATE 100 MG CAPSULE PO SCH ×3 (09:43→20:50)
[2017-12-24] MEDS: ENOXAPARIN SODIUM 60 MG/0.6 ML SQ SCH ×2 (09:43→20:50)
[2017-12-24] MEDS: MAGNESIUM SULFATE 1 GM in SODIUM CHLORIDE 0.9% 50 ML IV SCH (09:52)
[2017-12-24] MEDS ORDERED: FENTANYL CITRATE PF 50 MCG/1 ML 2ML VIAL ONE (10:12)
[2017-12-24] MEDS ORDERED: MIDAZOLAM HCL 1 MG/ML 2ML VIAL ONE (10:12)
[2017-12-24] MEDS: DEXTROSE 50%-WATER 50 ML DISP.SYRIN IV PRN (12:11)
[2017-12-24] MEDS ORDERED: ZOSYN 3.375GM+NS 50ML 50 ML IV SCH (18:30)
[2017-12-24] MEDS ORDERED: MAGNESIUM 2GM PREMIX 50ML 50 ML IV SCH (18:30)
[2017-12-24] MEDS ORDERED: PHARMACY COMMUNICATION MISC SCH (18:30)
[2017-12-24 18:53] LABS: HEMATOCRIT 25.6 % (42-54); MEAN CORPUSCULAR HEMOGLOBIN 22.9 pg (27.0-33.0); MEAN CORPUSCULAR HGB CONC 31.9 g/dL (32.0-36.0); NUCLEATED RED BLOOD CELLS 0.1 % (0.0-0.19); PLATELET COUNT (AUTO) 170 K/uL (130-400); RED BLOOD CELL COUNT(AUTO) 3.56 MIL/uL (4.50-6.20); RED CELL DISTRIBUTION WIDTH 28.5 % (11.0-15.5); WHITE BLOOD COUNT (AUTO) 6.8 K/uL (4.8-10.8)
[2017-12-24] MEDS ORDERED: ALBUMIN (HUMAN) 25% 100 ML IV ONE (20:00)
[2017-12-24] MEDS ORDERED: COMPOUND IV REFRIGERATED 1 EACH IVSOLN MISC PRN (20:45)
[2017-12-24] MEDS ORDERED: VANCOMYCIN PROTOCOL PER PHARMACY IV SCH (20:45)
[2017-12-24] MEDS ORDERED: VANCOMYCIN 1.5 GM in SODIUM CHLORIDE 0.9% 250 ML IV ONE (21:00)
[2017-12-24] MEDS: MEROPENEM 1 GM VIAL IVP SCH (21:04)
[2017-12-25] MEDS: IPRATROPIUM/ALBUTEROL SULFATE 3 ML SOLUTION IH SCH ×6 (02:42→22:09)
[2017-12-25 04:05] VITALS: BP 134/69
[2017-12-25 04:37] LABS: HEMATOCRIT 27.6 % (42-54); MEAN CORPUSCULAR HEMOGLOBIN 23.3 pg (27.0-33.0); MEAN CORPUSCULAR HGB CONC 32.5 g/dL (32.0-36.0); MEAN CORPUSCULAR VOLUME 71.6 fL (79-99); PLATELET COUNT (AUTO) 244 K/uL (130-400); RED BLOOD CELL COUNT(AUTO) 3.85 MIL/uL (4.50-6.20); RED CELL DISTRIBUTION WIDTH 29.1 % (11.0-15.5); WHITE BLOOD COUNT (AUTO) 9.1 K/uL (4.8-10.8)
[2017-12-25 04:45] LABS: INR 1.11 (0.85-1.15); PROTHROMBIN TIME 11.6 SEC (9.6-11.6)
[2017-12-25 04:52] LABS: ALBUMIN 2.4 g/dL (3.5-5.0); BILIRUBIN,TOTAL 0.6 mg/dL (0.2-1.0); MAGNESIUM 1.6 mg/dL (1.80-2.40); PHOSPHORUS 2.6 mg/dL (2.5-4.9); POTASSIUM 4.3 mmol/L (3.5-5.1)
[2017-12-25] MEDS: MEROPENEM 1 GM VIAL IVP SCH ×3 (04:58→20:41)
[2017-12-25] MEDS: INSULIN GLARGINE 100 UNITS/ML 10 ML VIAL SQ SCH ×2 (07:30→20:52)
[2017-12-25] MEDS: INSULIN HUMULIN R 100 UNIT/ML 3ML SQ SCH ×4 (07:30→20:52)
[2017-12-25] MEDS: VANCOMYCIN 1GM+NS 250ML 250 ML IV SCH ×2 (08:00→19:56)
[2017-12-25 08:10] VITALS: BP 120/63
[2017-12-25] MEDS: ENOXAPARIN SODIUM 60 MG/0.6 ML SQ SCH ×2 (09:00→20:42)
[2017-12-25] MEDS: PANTOPRAZOLE SODIUM 40 MG TABLET.DR PO SCH (09:00)
[2017-12-25] MEDS: BENZONATATE 100 MG CAPSULE PO SCH ×3 (09:00→20:41)
[2017-12-25 11:23] VITALS: BP 114/60
[2017-12-25 15:55] VITALS: BP 121/55
[2017-12-25 18:29] LABS: HEMATOCRIT 24.9 % (42-54); MEAN CORPUSCULAR HEMOGLOBIN 23.7 pg (27.0-33.0); MEAN CORPUSCULAR VOLUME 71.7 fL (79-99); PLATELET COUNT (AUTO) 171 K/uL (130-400); RED BLOOD CELL COUNT(AUTO) 3.47 MIL/uL (4.50-6.20); RED CELL DISTRIBUTION WIDTH 28.8 % (11.0-15.5); WHITE BLOOD COUNT (AUTO) 6.6 K/uL (4.8-10.8)
[2017-12-25] MEDS: MORPHINE SULFATE 2 MG/ML 1ML SYG IVP PRN (18:46)
[2017-12-25] MEDS: ONDANSETRON HCL 4 MG/2 ML VIAL IV PRN (18:46)
[2017-12-25 19:26] VITALS: BP 106/55
[2017-12-25 23:37] VITALS: BP 102/50
[2017-12-26] MEDS: IPRATROPIUM/ALBUTEROL SULFATE 3 ML SOLUTION IH SCH ×6 (01:29→21:54)
[2017-12-26 03:48] VITALS: BP 109/58
[2017-12-26] MEDS: MEROPENEM 1 GM VIAL IVP SCH ×3 (04:54→20:26)
[2017-12-26] MEDS: INSULIN HUMULIN R 100 UNIT/ML 3ML SQ SCH ×4 (05:53→21:27)
[2017-12-26] MEDS: INSULIN GLARGINE 100 UNITS/ML 10 ML VIAL SQ SCH (06:22)
[2017-12-26 06:26] LABS: HEMATOCRIT 25.6 % (42-54); MEAN CORPUSCULAR HEMOGLOBIN 22.7 pg (27.0-33.0); MEAN CORPUSCULAR HGB CONC 31.6 g/dL (32.0-36.0); PLATELET COUNT (AUTO) 174 K/uL (130-400); RED BLOOD CELL COUNT(AUTO) 3.56 MIL/uL (4.50-6.20); RED CELL DISTRIBUTION WIDTH 28.9 % (11.0-15.5); WHITE BLOOD COUNT (AUTO) 5.4 K/uL (4.8-10.8)
[2017-12-26 08:00] VITALS: BP 121/58
[2017-12-26] MEDS: PANTOPRAZOLE SODIUM 40 MG TABLET.DR PO SCH (08:58)
[2017-12-26] MEDS: VANCOMYCIN 1GM+NS 250ML 250 ML IV SCH ×2 (08:58→20:25)
[2017-12-26] MEDS: ENOXAPARIN SODIUM 60 MG/0.6 ML SQ SCH ×2 (08:59→20:27)
[2017-12-26] MEDS ORDERED: FUROSEMIDE 20 MG TABLET PO SCH (09:00)
[2017-12-26] MEDS ORDERED: SPIRONOLACTONE 25 MG TAB PO SCH (09:00)
[2017-12-26] MEDS: BENZONATATE 100 MG CAPSULE PO SCH ×3 (09:10→20:26)
[2017-12-26] MEDS: MORPHINE SULFATE 2 MG/ML 1ML SYG IVP PRN ×4 (09:59→18:03)
[2017-12-26 11:00] VITALS: BP 118/64
[2017-12-26 16:00] VITALS: BP 110/55
[2017-12-26] MEDS: FUROSEMIDE 20 MG TABLET PO SCH (17:41)
[2017-12-26 18:29] LABS: HEMATOCRIT 27.4 % (42-54); MEAN CORPUSCULAR HEMOGLOBIN 22.6 pg (27.0-33.0); MEAN CORPUSCULAR HGB CONC 31.3 g/dL (32.0-36.0); MEAN CORPUSCULAR VOLUME 72.2 fL (79-99); PLATELET COUNT (AUTO) 221 K/uL (130-400); RED CELL DISTRIBUTION WIDTH 28.6 % (11.0-15.5)
[2017-12-26 20:00] VITALS: BP 126/66
[2017-12-26] MEDS: SPIRONOLACTONE 25 MG TAB PO SCH (20:26)
[2017-12-27] VITALS (31 sets, daily range): BP systolic 67–146; BP diastolic 39–76
[2017-12-27] MEDS: MORPHINE SULFATE 2 MG/ML 1ML SYG IVP PRN ×4 (01:08→23:41)
[2017-12-27] MEDS: IPRATROPIUM/ALBUTEROL SULFATE 3 ML SOLUTION IH SCH ×6 (01:43→22:23)
[2017-12-27] MEDS: TRAMADOL HCL 50 MG TABLET PO PRN ×2 (03:35→07:55)
[2017-12-27] MEDS: MEROPENEM 1 GM VIAL IVP SCH ×3 (04:53→22:05)
[2017-12-27 05:16] LABS: HEMATOCRIT 26.9 % (42-54); MEAN CORPUSCULAR HEMOGLOBIN 23.2 pg (27.0-33.0); MEAN CORPUSCULAR HGB CONC 32.8 g/dL (32.0-36.0); MEAN CORPUSCULAR VOLUME 70.9 fL (79-99); PLATELET COUNT (AUTO) 276 K/uL (130-400); RED BLOOD CELL COUNT(AUTO) 3.79 MIL/uL (4.50-6.20); RED CELL DISTRIBUTION WIDTH 28.3 % (11.0-15.5); WHITE BLOOD COUNT (AUTO) 12.3 K/uL (4.8-10.8)
[2017-12-27 05:35] LABS: ALBUMIN 2.3 g/dL (3.5-5.0); BILIRUBIN,TOTAL 0.9 mg/dL (0.2-1.0); MAGNESIUM 1.4 mg/dL (1.80-2.40); PHOSPHORUS 2.4 mg/dL (2.5-4.9); POTASSIUM 4.1 mmol/L (3.5-5.1); TOTAL PROTEIN, SERUM 7.4 g/dL (6.0-8.3)
[2017-12-27] MEDS: INSULIN HUMULIN R 100 UNIT/ML 3ML SQ SCH ×3 (06:17→21:00)
[2017-12-27] MEDS: VANCOMYCIN 1GM+NS 250ML 250 ML IV SCH ×2 (08:00→20:00)
[2017-12-27] MEDS ORDERED: MORPHINE SULFATE 4 MG/1ML SYG ONE (08:13)
[2017-12-27] MEDS: PANTOPRAZOLE SODIUM 40 MG TABLET.DR PO SCH (08:28)
[2017-12-27] MEDS: FUROSEMIDE 20 MG TABLET PO SCH ×2 (08:28→17:04)
[2017-12-27] MEDS: SPIRONOLACTONE 25 MG TAB PO SCH ×2 (08:28→21:00)
[2017-12-27] MEDS: ENOXAPARIN SODIUM 60 MG/0.6 ML SQ SCH (08:29)
[2017-12-27] MEDS: BENZONATATE 100 MG CAPSULE PO SCH ×3 (09:00→21:00)
[2017-12-27 12:56] LABS: HEMATOCRIT 21.9 % (42-54)
[2017-12-27] MEDS ORDERED: SODIUM CHLORIDE 0.9% 1000ML 1,000 ML IV ONE ×4 (13:20→22:09)
[2017-12-27] MEDS ORDERED: NOREPINEPHRINE 4MG/NS 250ML 250 ML IV STA (13:25)
[2017-12-27] MEDS ORDERED: SODIUM CHLORIDE 0.9% 1000ML 1,000 ML IV STA (13:25)
[2017-12-27] MEDS: ONDANSETRON HCL 4 MG/2 ML VIAL IV PRN (14:28)
[2017-12-27] MEDS ORDERED: SODIUM CHLORIDE 0.9% 250 ML IV ONE (14:34)
[2017-12-27 14:38] LABS: INR 1.24 (0.85-1.15); PARTIAL THROMBOPLASTIN TIME 39.7 SEC (26.3-35.5)
[2017-12-27] MEDS ORDERED: COMPOUND IV REFRIGERATED 1 EACH IVSOLN MISC PRN (17:30)
[2017-12-27] MEDS ORDERED: NOREPINEPHRINE 4MG/NS 250ML 250 ML IV SCH (18:15)
[2017-12-27] MEDS ORDERED: ALBUMIN (HUMAN) 25% 100 ML IV STA (18:44)
[2017-12-27] MEDS ORDERED: [UNRECOGNIZED DRUG - OTHER] IV PRN (18:45)
[2017-12-27] MEDS ORDERED: ALBUMIN (HUMAN) 25% 100 ML IV ONE (18:45)
[2017-12-27] MEDS ORDERED: PHENYLEPHRINE HCL IV PRN (18:45)
[2017-12-27] MEDS ORDERED: ALBUMIN (HUMAN) 25% 100 ML IV SCH ×3 (18:45→23:00)
[2017-12-27] MEDS: VANCOMYCIN 750MG + NS 250 ML IV SCH ×2 (21:00)
[2017-12-27 21:43] LABS: HEMATOCRIT 14.4 % (42-54)
[2017-12-27 22:42] LABS: BAND NEUTROPHILS % (MANUAL) 8 % (0-2); LYMPHOCYTES % (MANUAL) 11 % (22-44); MONOCYTES % (MANUAL) 1 % (2-9); SEGMENTED NEUTROPHILS % 80 % (40-70)
[2017-12-27 22:43] LABS: MAN.DIFF COMMENT-IMPRESSION MANUAL DIFFERENTIAL; PLATELET MORPHOLOGY COMMENT ADEQUATE
[2017-12-28] VITALS (38 sets, daily range): BP systolic 61–120; BP diastolic 29–61
[2017-12-28] MEDS ORDERED: PHENYLEPHRINE HCL 10 MG/ML 1ML VIAL IV ONE (01:02)
[2017-12-28] MEDS ORDERED: SODIUM CHLORIDE 0.9% 250 ML IV ONE (01:03)
[2017-12-28] MEDS: IPRATROPIUM/ALBUTEROL SULFATE 3 ML SOLUTION IH SCH ×4 (02:26→14:33)
[2017-12-28 04:04] LABS: MEAN CORPUSCULAR HEMOGLOBIN 25.6 pg (27.0-33.0); MEAN CORPUSCULAR HGB CONC 32.2 g/dL (32.0-36.0); MEAN CORPUSCULAR VOLUME 79.7 fL (79-99); NUCLEATED RED BLOOD CELLS 0.4 % (0.0-0.19); PLATELET COUNT (AUTO) 235 K/uL (130-400); RED BLOOD CELL COUNT(AUTO) 2.55 MIL/uL (4.50-6.20); RED CELL DISTRIBUTION WIDTH 17.6 % (11.0-15.5)
[2017-12-28 04:11] LABS: HEMATOCRIT 20.3 % (42-54)
[2017-12-28 04:14] LABS: CREATININE 2.4 mg/dL (0.5-1.5); POTASSIUM 5.3 mmol/L (3.5-5.1); VANCOMYCIN LEVEL 15.5 mcg/mL (18.0-26.0)
[2017-12-28] MEDS ORDERED: SODIUM CHLORIDE 0.9% 1000ML 1,000 ML IV ONE (04:45)
[2017-12-28] MEDS: MEROPENEM 1 GM VIAL IVP SCH ×2 (05:29→13:59)
[2017-12-28 06:15] LABS: INR 1.85 (0.85-1.15); PROTHROMBIN TIME 19.2 SEC (9.6-11.6)
[2017-12-28] MEDS: INSULIN HUMULIN R 100 UNIT/ML 3ML SQ SCH ×2 (06:16→11:30)
[2017-12-28] MEDS ORDERED: SODIUM CHLORIDE 0.9% 500ML 500 ML IV ONE (06:52)
[2017-12-28] MEDS ORDERED: PHENYLEPHRINE HCL 50 MG in SODIUM CHLORIDE 0.9% 250 ML IV SCH (07:45)
[2017-12-28] MEDS ORDERED: SODIUM CHLORIDE 0.9% 500ML 500 ML IV PRN (07:45)
[2017-12-28] MEDS ORDERED: NOREPINEPHRINE BITARTRATE 8 MG in DEXTROSE 5%-WATER 250 ML IV SCH (07:45)
[2017-12-28] MEDS: BENZONATATE 100 MG CAPSULE PO SCH ×2 (08:32→13:10)
[2017-12-28] MEDS: VANCOMYCIN 750MG + NS 250 ML IV SCH ×2 (08:32)
[2017-12-28] MEDS: PANTOPRAZOLE SODIUM 40 MG TABLET.DR PO SCH (08:32)
[2017-12-28] MEDS: ONDANSETRON HCL 4 MG/2 ML VIAL IV PRN (10:51)
[2017-12-28] MEDS: MORPHINE SULFATE 2 MG/ML 1ML SYG IVP PRN ×2 (10:52→14:28)
[2017-12-28] MEDS: DEXTROSE 50%-WATER 50 ML DISP.SYRIN IV PRN (11:39)
[2017-12-28 12:48] LABS: HEMATOCRIT 12.9 % (42-54)
[2017-12-28 14:42] LABS: INR 1.83 (0.85-1.15); PARTIAL THROMBOPLASTIN TIME 42.4 SEC (26.3-35.5)
[2017-12-28] MEDS ORDERED: LORAZEPAM 2 MG/ML 1 ML VIAL IVP PRN (16:00)
[2017-12-28] MEDS ORDERED: PHARMACY COMMUNICATION MISC SCH (16:00)
[2017-12-28] MEDS ORDERED: MORPHINE-NS 50 MG/50 ML 50 ML IV PRN (17:00)
== END 2017-12-28 18:30 | disposition expired | DRG 393 ==
LOC: EDH 22:59 → 3DH 23:00 → 2BH 12-27 13:17
PROVIDERS: ADMIT Family Medicine; ATTEND Family Medicine
PROC: 0W9930Z Drainage of Right Pleural Cavity with Drainage Device, Percutaneous Approach (ICD-10-PCS; 2017-12-19)
PROC: 02H633Z Insertion of Infusion Device into Right Atrium, Percutaneous Approach (ICD-10-PCS; principal; 2017-12-28)
PROC: 30233N1 Transfusion of Nonautologous Red Blood Cells into Peripheral Vein, Percutaneous Approach (ICD-10-PCS; 2017-12-28)
PROC: B543ZZA Ultrasonography of Right Jugular Veins, Guidance (ICD-10-PCS; 2017-12-28)
PROC: 30233L1 Transfusion of Nonautologous Fresh Plasma into Peripheral Vein, Percutaneous Approach (ICD-10-PCS; 2017-12-28)
PROC: 30233R1 Transfusion of Nonautologous Platelets into Peripheral Vein, Percutaneous Approach (ICD-10-PCS; 2017-12-28)
PROC: 30233K1 Transfusion of Nonautologous Frozen Plasma into Peripheral Vein, Percutaneous Approach (ICD-10-PCS; 2017-12-28)
DX: K66.1 Hemoperitoneum (principal); K68.12 Psoas muscle abscess; R57.8 Other shock; E43 Unspecified severe protein-calorie malnutrition; I82.220 Acute embolism and thrombosis of inferior vena cava; J18.9 Pneumonia, unspecified organism; J90 Pleural effusion, not elsewhere classified; E11.9 Type 2 diabetes mellitus without complications; R18.8 Other ascites; D62 Acute posthemorrhagic anemia; J93.9 Pneumothorax, unspecified; J98.11 Atelectasis; R64 Cachexia; R06.03 Acute respiratory distress; M54.5 Low back pain; I10 Essential (primary) hypertension; M19.90 Unspecified osteoarthritis, unspecified site; Z66 Do not resuscitate; Z87.891 Personal history of nicotine dependence; Z68.21 Body mass index [BMI] 21.0-21.9, adult
CPT/HCPCS: 10030; 32555; 36415; 36430; 36556; 71045; 71250; 72100; 74176; 74177; 76942; 77012; 80048; 80053; 80202; 81001; 82550; 82553; 82947; 82948; 83605; 83615; 83735; 83880; 83986; 84100; 84157; 84484; 85007; 85014; 85018; 85025; 85027; 85060; 85384; 85610; 85730; 86850; 86900; 86901; 86922; 86927; 87040; 87071; 87076; 87103; 87116; 87205; 87206; 87252; 88108; 88305; 88313; 89051; 93005; 94640; 94664; 97039; A4218; A4357; A7048; C1751; J1650; J1815; J1956; J2060; J2185; J2250; J2270; J2370; J2405; J3010; J3370; J3475; J3490; J7030; J7040; J7060; J7070; P9012; P9016; P9017; P9034; P9046; P9047; Q9963; Q9967